=== PATIENT | male | born 1965 | race Two or more races ===

== ENCOUNTER 2024-07-08 11:14 | Emergency (ER) | payer OTHER ==
[~2024-07-08] VITALS: Ht 182.9 cm; Wt 108.9 kg
[2024-07-08] MEDS ORDERED: LOSARTAN-HCTZ1 EACH PO (11:57)
[2024-07-08] MEDS ORDERED: SIMVASTATIN5 MG PO (11:58)
[2024-07-08] MEDS ORDERED: NORVASC10 MG PO (11:58)
[2024-07-08] MEDS ORDERED: GABAPENTIN300 M2 PO (11:58)
[2024-07-08] MEDS ORDERED: DEXAMETHASONE SODIUM PHOSPHATE 4 MG/ML VIAL IM STA (13:30)
[2024-07-08] MEDS ORDERED: ZOVIRAX400 MG PO (13:33)
[2024-07-08] MEDS ORDERED: DEXAMETHASONE SODIUM PHOSPHATE 4 MG/ML VIAL ONE (13:35)
[2024-07-08] MEDS ORDERED: EYE ALLERGY REL15 ML OP (13:37)
== END 2024-07-08 13:57 | disposition home or self-care (01) ==
LOC: ER 11:16
DX: B00.9 Herpesviral infection, unspecified (principal); I10 Essential (primary) hypertension; Z88.8 Allergy status to other drugs, medicaments and biological substances